=== PATIENT | female | born 1970 | race Caucasian/White ===

== ENCOUNTER 2023-10-16 09:37 | Outpatient (CLI) | payer OTHER, SELFPAY | END 2023-10-16 09:38 | disposition home or self-care (01) | PROVIDERS: Visit Provider Obstetrics & Gynecology | DX: R68.82 Decreased libido (principal) | CPT/HCPCS: 84403 ==

== ENCOUNTER 2024-11-29 10:46 | Outpatient (CLI) | payer OTHER, SELFPAY | END 2024-11-29 10:47 | disposition home or self-care (01) | LOC: NFLDREF 10:46 | PROVIDERS: Visit Provider Obstetrics & Gynecology | DX: N95.2 Postmenopausal atrophic vaginitis (principal); R68.82 Decreased libido | CPT/HCPCS: 84270; 84402; 84403 ==